=== PATIENT | male | born 1965 | race Caucasian/White ===

== ENCOUNTER 2017-06-12 03:24 | Inpatient (IN) | payer OTHER ==
[~2017-06-12] VITALS: Ht 188 cm; Wt 114.3 kg
[2017-06-12] MEDS ORDERED: ACETAMINOPHEN 325MG TABLET PO ONE ×2 (05:45→06:00)
[2017-06-12] MEDS: DEXAMETHASONE 4MG/ML 1ML VIAL IV SCH ×2 (12:38→17:57)
[2017-06-12] MEDS ORDERED: HYDROCODONE/APAP 7.5/325MG 1 TAB TABLET PO PRN (12:45)
[2017-06-12] MEDS ORDERED: ONDANSETRON HCL 4MG/2ML VIAL IV PRN (12:45)
[2017-06-12] MEDS ORDERED: ACETAMINOPHEN 325MG TABLET PO PRN (12:45)
[2017-06-12] MEDS ORDERED: CLONIDINE 0.1MG TABLET PO PRN (12:45)
[2017-06-12] MEDS ORDERED: IPRATROPIUM/ALBUTEROL 0.5-3(2.5)MG/3ML NEB INH PRN (12:45)
[2017-06-12] MEDS ORDERED: DIPHENHYDRAMINE 50MG/ML VIAL IV PRN (12:45)
[2017-06-12 13:46] VITALS: BP 135/81
[2017-06-12] MEDS ORDERED: NORT50CA PO (14:00)
[2017-06-12 16:00] VITALS: BP 125/80
[2017-06-12 16:19] LABS: HEMATOCRIT 44.9 % (42.0-52.0); HEMOGLOBIN 15.6 g/dL (14.0-18.0); MEAN CORPUSCULAR HEMOGLOBIN 30.1 pg (28.0-32.0); MEAN CORPUSCULAR VOLUME 86.9 fL (80.0-94.0); PLATELET 200 x1000/uL (130-400); RED BLOOD CELL COUNT 5.17 mill/uL (4.7-6.1); RED CELL DISTRIBUTION WIDTH 13.1 % (11.6-14.6)
[2017-06-12 16:21] LABS: INR 1.1; PROTHROMBIN TIME 11.1 sec (9.4-11.6)
[2017-06-12 16:28] LABS: CHLORIDE 104 mEq/L (98-107)
[2017-06-12 16:34] LABS: CARBON DIOXIDE 26 mEq/L (21-32)
[2017-06-12 20:00] VITALS: BP 114/66
[2017-06-13] VITALS (31 sets, daily range): BP systolic 79–156; BP diastolic 47–137
[2017-06-13] MEDS: DEXAMETHASONE 4MG/ML 1ML VIAL IV SCH ×4 (00:35→17:39)
[2017-06-13] MEDS ORDERED: NORMAL SALINE 0.9% 10 ML SYR ONE (11:42)
[2017-06-13] MEDS ORDERED: LIDOCAINE HCL 1%/EPI 1:200,000 30 ML VIAL ONE (11:42)
[2017-06-13] MEDS ORDERED: BACITRACIN 50,000 UNITS/VIAL ONE (11:42)
[2017-06-13] MEDS ORDERED: GELATIN SPONGE,ABSORBABLE SZ 100 ONE (11:42)
[2017-06-13] MEDS ORDERED: THROMBIN (BOVINE) 5000 UNITS/VIAL TOP ONE (11:43)
[2017-06-13] MEDS ORDERED: NICARDIPINE 50 MG in SODIUM CHLORIDE 0.9% 230 ML IV PRN (13:30)
[2017-06-13] MEDS ORDERED: ROCURONIUM BROMIDE 10MG/ML VIAL 5ML IV ONE ×2 (13:57→15:19)
[2017-06-13] MEDS ORDERED: PROPOFOL 200MG/20ML VIAL IV ONE ×2 (13:57→14:55)
[2017-06-13] MEDS ORDERED: FENTANYL CITRATE/PF 50MCG/ML 5ML VIAL ONE (13:59)
[2017-06-13] MEDS ORDERED: CEFAZOLIN SODIUM 1000MG/VIAL IV SCH (14:00)
[2017-06-13] MEDS ORDERED: MIDAZOLAM HCL 2 MG/2 ML VIAL ONE (14:00)
[2017-06-13] MEDS ORDERED: HYDROMORPHONE HCL/PF 2MG/ML (OR) ONE (14:01)
[2017-06-13] MEDS ORDERED: ESMOLOL HCL 10MG/ML 10ML VIAL IV ONE ×2 (15:18→15:48)
[2017-06-13] MEDS ORDERED: LABETALOL HCL 5MG/ML VIAL 20ML IV ONE (15:18)
[2017-06-13] MEDS ORDERED: DEXAMETHASONE 4MG/ML 1ML VIAL ONE (15:18)
[2017-06-13] MEDS ORDERED: NICARDIPINE 100 MG in SODIUM CHLORIDE 0.9% 60 ML IV PRN (16:45)
[2017-06-13] MEDS ORDERED: GLYCOPYRROLATE 0.2 MG/ML 2ML VIAL ONE (17:40)
[2017-06-13] MEDS: DEXT 5%/LACTATED RINGERS 1,000 ML IV SCH (17:41)
[2017-06-13] MEDS ORDERED: ONDANSETRON INJ IV PRN (18:00)
[2017-06-13] MEDS ORDERED: DIPHENHYDRAMINE INJ IV PRN (18:00)
[2017-06-13] MEDS ORDERED: NALOXONE INJ IV PRN (18:00)
[2017-06-13] MEDS: HYDROMORPHONE PCA 10MG/50ML IV PRN (18:11)
[2017-06-13] MEDS: CEFAZOLIN 1000MG PREMIX 50 ML IV SCH (22:37)
[2017-06-14] VITALS (73 sets, daily range): BP systolic 75–161; BP diastolic 30–110
[2017-06-14] MEDS: DEXAMETHASONE 4MG/ML 1ML VIAL IV SCH ×5 (01:13→23:49)
[2017-06-14] MEDS: CEFAZOLIN 1000MG PREMIX 50 ML IV SCH ×3 (05:41→21:50)
[2017-06-14] MEDS: DEXT 5%/LACTATED RINGERS 1,000 ML IV SCH ×3 (09:38→23:43)
[2017-06-14] MEDS: HYDROMORPHONE PCA 10MG/50ML IV PRN (10:09)
[2017-06-15] VITALS (43 sets, daily range): BP systolic 111–176; BP diastolic 60–146
[2017-06-15] MEDS: MORPHINE SULFATE 2 MG/ML CPJ (NOT FOR IM USE) IV PRN ×3 (00:31→11:53)
[2017-06-15 05:33] LABS: HEMATOCRIT. 39.7 % (42.0-52.0); HEMOGLOBIN. 13.6 g/dL (14.0-18.0); MEAN CORPUSCULAR HEMOGLOBIN 30.1 pg (28.0-32.0); MEAN CORPUSCULAR VOLUME 87.5 fL (80.0-94.0); MEAN PLATELET VOLUME 9.6 fl (7.4-10.4); PLATELET 207 x1000/uL (130-400); RED BLOOD CELL COUNT 4.54 mill/uL (4.7-6.1); RED CELL DISTRIBUTION WIDTH 13.4 % (11.6-14.6)
[2017-06-15] MEDS: DEXAMETHASONE 4MG/ML 1ML VIAL IV SCH ×2 (05:40→11:52)
[2017-06-15 05:52] LABS: CARBON DIOXIDE 27 mEq/L (21-32); CHLORIDE 104 mEq/L (98-107)
[2017-06-15] MEDS ORDERED: MAGNESIUM/ALUMINUM HYDROXIDE/SIMETHICONE 30ML UDC PO PRN ×2 (06:00→10:00)
[2017-06-15] MEDS ORDERED: BISACODYL 5MG TABLET PO PRN (10:00)
[2017-06-15] MEDS: PANTOPRAZOLE SODIUM 40 MG/VIAL IV SCH (10:08)
[2017-06-15] MEDS: DOCUSATE SODIUM 100MG CAPSULE PO SCH ×2 (10:08→17:08)
[2017-06-15] MEDS: DEXT 5%/LACTATED RINGERS 1,000 ML IV SCH (13:40)
[2017-06-15 13:55] LABS: PLATELET ESTIMATE NORMAL
[2017-06-15] MEDS ORDERED: POLYETHYLENE GLYCOL 3350 (17GM) 1 DOSE PACK PO NR (14:15)
[2017-06-16 00:10] VITALS: BP 158/88
[2017-06-16 04:30] VITALS: BP 140/80
[2017-06-16 08:00] VITALS: BP 137/89
[2017-06-16] MEDS ORDERED: NA PHOS,M-B/NA PHOS,DI-BA ENEMA 118ML PR NR (08:12)
[2017-06-16] MEDS ORDERED: SODIUM CHLORIDE 0.9% 500 ML IV ONE (08:15)
[2017-06-16] MEDS: DOCUSATE SODIUM 100MG CAPSULE PO SCH (08:55)
[2017-06-16] MEDS: PANTOPRAZOLE SODIUM 40 MG/VIAL IV SCH (08:55)
[2017-06-16] MEDS ORDERED: DEXAMETHASONE 4MG TABLET PO SCH (09:00)
[2017-06-16] MEDS ORDERED: DEXAMETHASONE 4MG/ML 1ML VIAL PO SCH (09:00)
[2017-06-16] MEDS: DEXT 5%/LACTATED RINGERS 1,000 ML IV SCH (09:13)
[2017-06-16 12:00] VITALS: BP 125/89
[2017-06-16 12:24] VITALS: BP 125/89
== END 2017-06-16 14:21 | disposition home health service (06) | DRG 321 ==
LOC: ER 03:24 → 8WST 09:21 → EDBEDREQ 09:28 → ENRESERV 12:13 → MICUSO 06-13 16:03 → 8WST 06-15 23:45
PROVIDERS: ADMIT Internal Medicine; ATTEND Internal Medicine
PROC: 0RB30ZZ Excision of Cervical Vertebral Disc, Open Approach (ICD-10-PCS; 2017-06-13)
PROC: 0RG20K0 Fusion of 2 or more Cervical Vertebral Joints with Nonautologous Tissue Substitute, Anterior Approach, Anterior Column, Open Approach (ICD-10-PCS; principal; 2017-06-13 11:00)
DX: M48.02 Spinal stenosis, cervical region (principal); G82.50 Quadriplegia, unspecified; M47.12 Other spondylosis with myelopathy, cervical region; G89.29 Other chronic pain; G43.909 Migraine, unspecified, not intractable, without status migrainosus; G95.29 Other cord compression; R26.9 Unspecified abnormalities of gait and mobility; Z90.49 Acquired absence of other specified parts of digestive tract; M50.80 Other cervical disc disorders, unspecified cervical region
CPT/HCPCS: 36415; 71010; 72040; 72141; 80048; 85025; 85027; 85610; 88304; 88311; 93005; 95925; 95926; 95928; 96374; 97116; 97163; 99285; A4216; C1713; C9113; J0690; J1100; J1170; J1200; J2250; J2270; J2704; J3010; J3490; J7040; J7121; J8540; L0172